=== PATIENT | female | born 2000 | race African-American/Black ===

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

== ENCOUNTER 2022-03-28 05:21 | Inpatient (IN) | payer BC, OTHER ==
[2022-03-28] MEDS ORDERED: Morphine 4 MG/ML VIAL ONE (05:48)
[2022-03-28] MEDS ORDERED: Acetaminophen 500 MG TAB ONE (05:48)
[2022-03-28] MEDS ORDERED: Morphine 2 MG/ML VIAL SLOW IVP PRN (05:51)
[2022-03-28] MEDS ORDERED: Promethazine HCl 25 MG/ML VIAL IM PRN ×2 (05:51→15:04)
[2022-03-28] MEDS ORDERED: Ondansetron PF 4 MG/2 ML Vial IVP PRN (05:51)
[2022-03-28] MEDS ORDERED: Cyclobenzaprine 10 MG TAB PO PRN (05:54)
[2022-03-28] MEDS ORDERED: traMADol HCl 50 MG TAB PO PRN (05:54)
[2022-03-28 06:53] LABS: SARS-CoV-2 NAA Rapid Test Not Detected (NotDetected)
[2022-03-28 07:35] LABS: #Basophils 0.2 thou/uL (0.0-0.2); #Lymphocytes 1.3 thou/uL (1.20-3.40); #Monocytes 0.6 thou/uL (0.11-0.59); #Neutrophils 9.8 thou/uL (1.40-6.50); %Basophils 1.3 % (0.0-1.0); %Monocytes 4.8 % (0.0-10.0); %Neutrophils 82.8 % (42.0-75.0); Hemoglobin 12.8 g/dL (12.0-16.0); Mean Corpuscular Hemoglobin 34.5 pg (27.0-31.0); Mean Platelet Volume 7.2 fL (7.4-10.4); Platelet Count 191 thou/uL (130-400); Red Blood Cell (RBC) Count 3.72 mill/uL (4.20-5.40); White Blood Cell (WBC) Count 11.8 thou/uL (4.8-10.8)
[2022-03-28 07:46] LABS: Prothrombin Time 13.8 sec (12.0-14.7)
[2022-03-28 07:47] LABS: PTT 26.9 sec (22.9-36.1)
[2022-03-28 07:57] LABS: Anion Gap 15 mmol/L (10-20); BUN (Urea Nitrogen) 15 mg/dL (7.0-18.7); Calc. Creatinine Clearance 0 mL/min (70-130); Calcium 9.2 mg/dL (7.8-10.44); Carbon Dioxide 24 mmol/L (22-29); Chloride 104 mmol/L (98-107); Glucose 103 mg/dL (70-105); Magnesium 1.8 mg/dL (1.6-2.6); Phosphorus 3.2 mg/dL (2.3-4.7); Potassium 3.5 mmol/L (3.5-5.1); Sodium 139 mmol/L (136-145)
[2022-03-28] MEDS ORDERED: Ibuprofen 200 MG TAB PO PRN (10:41)
[2022-03-28] MEDS ORDERED: Polyethylene Glycol 3350 17 GM Packet PO SCH (10:45)
[2022-03-28] MEDS ORDERED: ceFAZolin (BATCH) 2 GM in Premix Bag 1 BAG IVPB SCH (10:45)
[2022-03-28] MEDS ORDERED: Famotidine 20 MG TAB PO SCH (10:45)
[2022-03-28] MEDS ORDERED: Senokot S 8.6-50 MG TAB PO SCH (10:45)
[2022-03-28] MEDS: Sodium Chloride 0.9% 1,000 ML IV SCH ×2 (11:30→16:25)
[2022-03-28] MEDS ORDERED: Dexmedetomidine 200 MCG/2 ML VIAL ONE (12:00)
[2022-03-28 12:25] LABS: Bacteria/HPF None Seen HPF (None Seen); Bilirubin Negative (Negative); Blood, Urine Negative (Negative); Clarity Clear (Clear); Glucose, Urine (Dipstick) Normal (Negative); Ketone, Urine 150 mg/dL (Negative); Leukocyte Negative Leu/uL (Negative); Nitrite Negative (Negative); Protein, Urine (Dipstick) 20 mg/dL (Neg-Trace); RBC/HPF 0-3 HPF (0-3); Specific Gravity, Urine 1.035 (1.002-1.036); Squamous Epithelial 0-3 HPF (0-3); Urobilinogen Normal mg/dL (Less than 2); WBC/HPF 0-3 HPF (0-3)
[2022-03-28 12:28] LABS: Urine Culture Reflex No No
[2022-03-28] MEDS ORDERED: Midazolam HCl 2 mg/2 ml Vial ONE (12:33)
[2022-03-28] MEDS ORDERED: ceFAZolin (BATCH) 2 GM/100 ML BAG ONE ×2 (12:49)
[2022-03-28] MEDS ORDERED: Ketorolac Tromethamine 30 MG/ML VIAL ONE (13:23)
[2022-03-28] MEDS ORDERED: Dexamethasone 20 MG/5 ML VIAL ONE (13:23)
[2022-03-28] MEDS ORDERED: Lidocaine 1% PF 5 ML VIAL ONE (13:23)
[2022-03-28] MEDS ORDERED: ePHEDrine 50 MG/ML VIAL ONE (13:23)
[2022-03-28] MEDS ORDERED: PROPOFOL 200 MG/20 ML VIAL ONE (13:23)
[2022-03-28] MEDS ORDERED: Ondansetron PF 4 MG/2 ML Vial ONE (13:23)
[2022-03-28] MEDS ORDERED: Bupivacaine PF 0.5% 30 ML VIAL ONE (13:56)
[2022-03-28] MEDS ORDERED: Ondansetron HCl/PF 4 MG/2 ML Vial IVP PRN (15:04)
[2022-03-28] MEDS ORDERED: Promethazine HCl 25 MG/ML VIAL IVPB PRN (15:04)
[2022-03-28] MEDS: Acetaminophen 500 MG TAB PO SCH ×3 (16:24→23:29)
[2022-03-28] MEDS: traMADol HCl 50 MG TAB PO SCH ×3 (16:24→23:36)
[2022-03-28] MEDS: Famotidine 20 MG TAB PO SCH (20:47)
[2022-03-28] MEDS: Senokot S 8.6-50 MG TAB PO SCH (20:47)
[2022-03-28] MEDS: ceFAZolin (BATCH) 2 GM in Premix Bag 1 BAG IVPB SCH (23:29)
[2022-03-29] MEDS: traMADol HCl 50 MG TAB PO SCH ×2 (06:24→12:20)
[2022-03-29] MEDS: Acetaminophen 500 MG TAB PO SCH ×2 (06:24→12:19)
[2022-03-29] MEDS: ceFAZolin (BATCH) 2 GM in Premix Bag 1 BAG IVPB SCH ×2 (06:25→12:20)
[2022-03-29] MEDS: Senokot S 8.6-50 MG TAB PO SCH (09:00)
[2022-03-29] MEDS: Famotidine 20 MG TAB PO SCH (09:00)
[2022-03-29] MEDS ORDERED: Polyethylene Glycol 3350 17 GM Packet PO SCH (09:00)
[2022-03-29 12:14] VITALS: BP 113/74; TEMP 98.6
== END 2022-03-29 14:15 | disposition home or self-care (01) | DRG 512 ==
LOC: ERS 05:21 → SJJU 05:51
PROVIDERS: ADMIT Student in an Organized Health Care Education/Training Program; ATTEND Surgery
PROC: 0PSJ04Z Reposition Left Radius with Internal Fixation Device, Open Approach (ICD-10-PCS; principal; 2022-03-28)
PROC: 0PSL04Z Reposition Left Ulna with Internal Fixation Device, Open Approach (ICD-10-PCS; 2022-03-28)
DX: S52.602A Unspecified fracture of lower end of left ulna, initial encounter for closed fracture (principal); Z20.822 Contact with and (suspected) exposure to COVID-19; S52.352A Displaced comminuted fracture of shaft of radius, left arm, initial encounter for closed fracture; W23.0XXA Caught, crushed, jammed, or pinched between moving objects, initial encounter
CPT/HCPCS: 36415; 76000; 80048; 81001; 83735; 84100; 84702; 85025; 85610; 85730; 86850; 86900; 86901; 96374; C1713; G0390; J0690; J1100; J1885; J2250; J2270; J2405; J2704; J3490; S0020; U0002

== ENCOUNTER 2023-07-07 00:55 | Emergency (ER) | payer BC ==
[2023-07-07] MEDS ORDERED: Dexamethasone 4 MG TAB ONE (01:18)
[2023-07-07] MEDS ORDERED: diphenhydrAMINE 25 MG CAP ONE (01:20)
[2023-07-07] MEDS ORDERED: Famotidine 20 MG TAB ONE (01:20)
== END 2023-07-07 01:57 | disposition home or self-care (01) ==
LOC: ERS 00:55
DX: L50.0 Allergic urticaria (principal)
CPT/HCPCS: 99283; J8540

== ENCOUNTER 2023-11-04 22:13 | Emergency (ER) | payer BC ==
[2023-11-04] MEDS ORDERED: diphenhydrAMINE 25 MG CAP ONE (23:37)
[2023-11-04] MEDS ORDERED: predniSONE 20 MG TAB ONE (23:37)
[2023-11-04] MEDS ORDERED: Famotidine 20 MG TAB ONE (23:37)
== END 2023-11-05 00:34 | disposition home or self-care (01) ==
LOC: ERS 22:13
DX: T78.1XXA Other adverse food reactions, not elsewhere classified, initial encounter (principal)
CPT/HCPCS: 99283; J7512